=== PATIENT | female | born 1965 | race Asian ===

== ENCOUNTER → 2023-07-31 10:58 | Outpatient (REF) | payer OTHER, SELFPAY ==
[2023-07-31 12:10] LABS: ALT (SGPT) 22 U/L (0-35); AST (SGOT) 28 U/L (14-36); Albumin 4.2 g/dl (3.5-5.0); Alkaline Phosphatase 69 U/L (38-126); Blood Urea Nitrogen 20 mg/dl (7-17); Calcium 9.7 mg/dl (8.4-10.2); Carbon Dioxide 25 mmol/L (22-30); Chloride 98 mmol/L (98-107); Glucose 121 mg/dl (70-99); Potassium 4.2 mmol/L (3.5-5.1); Sodium 133 mmol/L (135-145); Total Bilirubin 1.3 mg/dl (0.2-1.3); Total Protein 7.5 g/dl (6.3-8.2); eGFR > 60.00
[2023-07-31 12:37] LABS: Glycohemoglobin (HgbA1c) 8.7 % (4.0-5.6)
== END ==
LOC: CLINIC 10:58
PROVIDERS: ATTENDING PHYSICIAN Nurse Practitioner Acute Care
DX: E11.9 Type 2 diabetes mellitus without complications (principal)
CPT/HCPCS: 36415; 80053; 83036

== ENCOUNTER → 2023-11-29 07:12 | Outpatient (REF) | payer OTHER, SELFPAY ==
[2023-11-29 08:42] LABS: HDL Cholesterol 61 mg/dl; LDL Cholesterol, Calculated 51 mg/dl; Total Cholesterol 137 mg/dl (50-199); Triglyceride 129 mg/dl (10-149); Very Low Density Lipoprotein 25 mg/dl (0-30)
[2023-11-29 12:19] LABS: Microalbumin, Random Urine <0.6 mg/dl (0.6-1.7)
== END ==
LOC: CLINIC 07:12
PROVIDERS: ATTENDING PHYSICIAN Internal Medicine
DX: E11.9 Type 2 diabetes mellitus without complications (principal)
CPT/HCPCS: 80061; 82043; 82570; 83036

== ENCOUNTER → 2024-03-06 07:51 | Outpatient (REF) | payer OTHER, SELFPAY ==
[2024-03-06 10:16] LABS: ALT (SGPT) 20 U/L (0-35); AST (SGOT) 25 U/L (14-36); Albumin 4.4 g/dl (3.5-5.0); Alkaline Phosphatase 63 U/L (38-126); Blood Urea Nitrogen 12 mg/dl (7-17); Calcium 9.9 mg/dl (8.4-10.2); Carbon Dioxide 25 mmol/L (22-30); Chloride 102 mmol/L (98-107); Glucose 172 mg/dl (70-99); HDL Cholesterol 56 mg/dl; LDL Cholesterol, Calculated 85 mg/dl; Potassium 4.8 mmol/L (3.5-5.1); Sodium 141 mmol/L (135-145); Total Bilirubin 0.8 mg/dl (0.2-1.3); Total Cholesterol 169 mg/dl (50-199); Total Protein 7.1 g/dl (6.3-8.2); Triglyceride 140 mg/dl (10-149); Very Low Density Lipoprotein 28 mg/dl (0-30); eGFR > 60.00
[2024-03-06 10:17] LABS: Glycohemoglobin (HgbA1c) 9.5 % (4.0-5.6)
[2024-03-06 10:53] LABS: Vitamin B12 273 pg/ml (239-931)
== END ==
LOC: REG 07:51
PROVIDERS: ATTENDING PHYSICIAN Nurse Practitioner Adult Health
DX: E11.65 Type 2 diabetes mellitus with hyperglycemia (principal); E78.5 Hyperlipidemia, unspecified; E53.8 Deficiency of other specified B group vitamins
CPT/HCPCS: 36415; 80053; 80061; 82607; 83036